=== PATIENT | female | born 1975 | race Caucasian/White ===

== ENCOUNTER 2017-04-10 11:17 | Day surgery (SDC) | payer OTHER ==
[~2017-04-10] VITALS: Ht 157.5 cm; Wt 71.1 kg
[2017-04-10] MEDS ORDERED: Prilosec Otc20 MG (11:55)
[2017-04-10] MEDS ORDERED: ESCI10 (11:55)
== END 2017-04-10 14:55 | disposition home or self-care (01) ==
LOC: ORSCSDS 11:17
PROVIDERS: Podiatrist Foot & Ankle Surgery
PROC: 0QSJ04Z Reposition Right Fibula with Internal Fixation Device, Open Approach (ICD-10-PCS; principal; 2017-04-10 12:30)
DX: S82.62XA Displaced fracture of lateral malleolus of left fibula, initial encounter for closed fracture (principal); K21.9 Gastro-esophageal reflux disease without esophagitis; F17.210 Nicotine dependence, cigarettes, uncomplicated
CPT/HCPCS: C1713; J0171; J0690; J1100; J2250; J2370; J2405; J3010; J7120